=== PATIENT | female | born 1980 ===

== ENCOUNTER 2019-02-22 08:37 | Day surgery (SDC) | payer OTHER | END 2019-02-22 12:30 | disposition home or self-care (01) | LOC: CIR.AMB 08:37 | DX: M77.12 Lateral epicondylitis, left elbow (principal) ==

== ENCOUNTER 2023-10-13 07:05 | Day surgery (SDC) | payer OTHER ==
[~2023-10-13 07:05] MED LIST: GLUMETZA500 MG; ZESTRIL2.5 MG
[2023-10-13] MEDS ORDERED: KETOROLAC TROMETHAMINE 30 MG VIAL IV ONE (11:00)
[2023-10-13] MEDS ORDERED: CEFAZOLIN SODIUM 1,000 MG in 0.9 % SODIUM CHLORIDE 50 ML IV ONE (11:00)
[2023-10-13] MEDS ORDERED: KETOROLAC TROMETHAMINE 30 MG VIAL IM ONE (11:00)
== END 2023-10-13 16:40 | disposition home or self-care (01) ==
LOC: CIR.AMB 07:05
PROVIDERS: ATTEND Orthopaedic Surgery
DX: M24.821 Other specific joint derangements of right elbow, not elsewhere classified (principal); M67.931 Unspecified disorder of synovium and tendon, right forearm; M77.11 Lateral epicondylitis, right elbow; E11.9 Type 2 diabetes mellitus without complications; I10 Essential (primary) hypertension